=== PATIENT | female | born 1990 | race Two or more races ===

== ENCOUNTER 2023-07-28 19:33 | Inpatient (IN) | payer OTHER ==
[~2023-07-28] VITALS: Ht 170.2 cm; Wt 90.7 kg
--- NOTE | 2023-07-28 20:09 | NUR ---
SE RECIBE PTE ALERTA Y ORIENTADA X3 LA CUAL REFIERE VENIR POR CELULUTIS EN PIERNA DERECHA, SE OBSERVA PIERNA DERECHA DEMETRIO, CALIENTE Y EDEMATOSA. SE MIDEN S/V Y SE COLCOA EN AREA DE OBSERVACION.
[2023-07-28 21:31] LABS: HEMATOCRIT 34.8 % (36.0-45.00); MEAN CORPUSCULAR HEMOGLOBIN 27.8 pg (27.00-32.0); MEAN CORPUSCULAR HGB CONC 31.6 g/dl (32.0-36.0); PLATELET COUNT 318 K/uL (150-450); RED BLOOD COUNT 3.95 M/uL (4.00-6.00); RED CELL DISTRIBUTION WIDTH 14.2 % (11.5-14.5)
--- NOTE | 2023-07-28 21:31 | NUR ---
SE LE ORIENTA A PTE SOBRE TRATAMIENTO E INSTRUCCIONES A SEGUIR, CATRACHITA REFIERE ENTENDER. LE COLECTA MUESTRAS, SE CANALIZA Y SE ADMINISTRA MEDICAMENTO PAM ORDEN MEDICA
[2023-07-28 21:57] LABS: CALCIUM 8.6 mg/dL (8.5-10.1); CREATININE SERUM 0.88 mg/dL (0.55-1.02); GFR 73.55
[2023-07-28 22:18] LABS: POTASSIUM 2.77 mEq/L (3.5-5.1)
[2023-07-29 04:00] LABS: PH,URINE 5.5 (5.0-8.0); URINE APPEARANCE Clear; URINE BILIRRUBIN Negative (NEGATIVE); URINE BLOOD Negative; URINE COLOR Yellow; URINE GLUCOSE Negative (NEGATIVE); URINE LEUKOCYTE Negative; URINE NITRATE Negative; URINE PROTEIN Trace (NEGATIVE)
[2023-07-29 04:03] LABS: URINE BACTERIA 191.4 uL (0.0-1933); URINE EPITHELIAL CELLS 13.5 uL (0.0-38.8); URINE RBC 19.9 uL (0.0-20.8); URINE WBC 11.7 uL (0.0-23.2)
[2023-07-29 06:43] LABS: D DIMER 0.79 MG/L; INR 0.95
[2023-07-29 06:44] LABS: PHOSPHOROUS 3.6 mg/dL (2.5-4.9)
== END 2023-07-30 14:24 | disposition home or self-care (01) | DRG 603 ==
LOC: ER 19:33 → MEDJ 07-29 01:30
PROVIDERS: Emergency Medicine; General Practice; ADMIT Internal Medicine; ATTEND Internal Medicine
PROC: B54DZZZ Ultrasonography of Bilateral Lower Extremity Veins (ICD-10-PCS; principal; 2023-07-28)
DX: L03.116 Cellulitis of left lower limb (principal); M79.605 Pain in left leg; R50.9 Fever, unspecified; Z20.822 Contact with and (suspected) exposure to COVID-19